=== PATIENT | male | born 1980 | race Caucasian/White ===

== ENCOUNTER 2021-01-20 22:55 | Emergency (ER) | payer OTHER ==
[2021-01-20] MEDS ORDERED: ELIMITE60 GM TP (23:13)
== END 2021-01-20 23:15 | disposition home or self-care (01) ==
LOC: ER1 22:55
DX: R21 Rash and other nonspecific skin eruption (principal)
CPT/HCPCS: 99282

== ENCOUNTER 2021-05-21 20:46 | Emergency (ER) | payer OTHER ==
[~2021-05-21 20:46] MED LIST: ELIMITE60 GM TP
== END 2021-05-21 21:20 | disposition home or self-care (01) ==
LOC: ER1 20:46
DX: Z03.823 Encounter for observation for suspected inserted (injected) foreign body ruled out (principal)
CPT/HCPCS: 99282